=== PATIENT | female | born 2005 | race Caucasian/White ===

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

== ENCOUNTER 2025-04-04 12:18 | Oncology outpatient (recurring) (ONCR) | payer MEDICAID, SELFPAY | END 2025-04-28 23:59 | disposition home or self-care (01) | LOC: ONCMED 12:18 | PROVIDERS: Family Provider Pediatrics Adolescent Medicine; PCP Pediatrics Adolescent Medicine; Visit Provider Family Medicine | DX: Z31.82 Encounter for Rh incompatibility status (principal); Z79.899 Other long term (current) drug therapy | CPT/HCPCS: 96372; J2790 ==